=== PATIENT | male | born 1995 | race Caucasian/White ===

== ENCOUNTER 2017-05-21 22:47 | Emergency (ER) | payer OTHER ==
[2017-05-21] MEDS ORDERED: NS 1,000 ML IV ONE (22:52)
--- NOTE | 2017-05-21 22:52 | EDPHY ---
H & P HPI/ROS: HPI CHIEF COMPLAINT: Paranoid after smoking marijuana HISTORY OF PRESENT ILLNESS: This patient 21-year-old male, he is otherwise healthy denies any significant medical history he resides in [facility] [place], he is up here in [place] hang out with friends, he smoked marijuana earlier and states now he feels very paranoid. Patient states that he feels "too high "he denies any focal complaints. Does state he feels little lightheaded. Denies chest pain or shortness of breath. Denies headache. Past Medical History: Anxiety Past Surgical History: Denies surgical history Social History: Denies daily use of drugs alcohol tobacco products. Smoked marijuana tonight. Family History: Noncontributory. ROS REVIEW OF SYSTEMS: A comprehensive 10 point review of systems is otherwise negative aside from elements mentioned in the history of present illness. Exam Constitutional appears well nontoxic, triage nursing summary reviewed, vital signs reviewed, awake/alert. Eyes normal conjunctivae and sclera, EOMI, PERRLA. HENT normal inspection, atraumatic, moist mucus membranes, no epistaxis, neck supple/ no meningismus, no raccoon eyes. Respiratory clear to auscultation bilaterally, normal breath sounds, no respiratory distress, no wheezing. Cardiovascular rate normal, regular rhythm, no murmur, no edema, distal pulses normal. Gastrointestinal soft, non-tender, no rebound, no guarding, normal bowel sounds, no distension, no pulsatile mass. Genitourinary no CVA tenderness. Musculoskeletal no midline vertebral tenderness, full range of motion, no calf swelling, no tenderness of extremities, no meningismus, good pulses, neurovascularly intact. Skin pink, warm, & dry, no rash, skin atraumatic. Neurologic awake, alert and oriented x 3, AAOx3, moves all 4 extremities equally, motor intact, sensory intact, CN II-XII intact, normal cerebellar, normal vision, normal speech. Psychiatric paranoid Heme/Lymph/Immune no lymphadenopathy. Differential Diagnosis: Includes but is not limited to in a particular order acute marijuana intoxication, dehydration. Medical Decision Making: Plan for this patient patient is an IV established by EMS will give a L of fluid and monitor. Re-evaluation: 0320: Patient resting comfortably. No acute distress. Has no complaints. Nail completely sober. Admits to smoking too much marijuana. Return precautions discussed with him Source: Patient, EMS Constitutional: Initial Vital Signs Temperature (C) 36.5 C 05/21/17 22:51 Heart Rate 71 05/21/17 22:51 Respiratory Rate 16 05/21/17 22:51 Blood Pressure 166/94 H 05/21/17 22:51 O2 Sat (%) 99 05/21/17 22:51 O2 Delivery Mode Room Air Allergies/Adverse Reactions: No Known Allergies Allergy (Unverified 05/21/17 22:57) Home Medications: Medication Instructions Recorded NK [No Known Home Meds] 05/21/17 Medical Decision Making - Data Points Medications Given: Discontinued Medications Sodium Chloride (Ns) 1,000 mls @ 0 mls/hr IV ONCE ONE PRN Reason: Wide Open Stop: 05/21/17 22:53 Last Admin: 05/21/17 23:02 Dose: 1,000 mls Departure - Departure Disposition: Home, Routine, Self-Care Clinical Impression: Marijuana intoxication Qualifiers: Complication of substance-induced condition: uncomplicated Qualified Code(s): F12.920 - Cannabis use, unspecified with intoxication, uncomplicated Condition: Good Instructions: Cannabis Abuse (ED) Referrals: Patient,NotPresent [Unknown] - As per Instructions
[2017-05-22 02:54] VITALS: O2SAT 96
[2017-05-22 03:34] VITALS: BP 128/78; PULSE 74; RESP 16; TEMP 97.9
== END 2017-05-22 03:34 | disposition home or self-care (01) ==
DX: F12.920 Cannabis use, unspecified with intoxication, uncomplicated (principal)